=== PATIENT | male | born 1970 ===

== ENCOUNTER 2018-12-13 17:29 | Outpatient (REF) | payer BC, SELFPAY ==
[2018-12-13 22:53] LABS: Anion Gap 9.1 mmol/L (3-11); BUN 15 mg/dL (7-18); CO2 25.9 mmol/L (21.0-32.0); CREATININE 1.11 mg/dL (0.70-1.30); Calcium 8.7 mg/dL (8.5-10.1); Chloride 106 mmol/L (98-107); Glucose 100 mg/dL (70-100); Potassium 4.2 mmol/L (3.5-5.1); Sodium 141 mmol/L (136-145)
== END 2018-12-13 17:49 ==
LOC: NCHCN 17:29
PROVIDERS: PCP Registered Nurse; Visit Provider Registered Nurse
DX: I10 Essential (primary) hypertension (principal)
CPT/HCPCS: 80048

== ENCOUNTER 2020-01-04 17:34 | Outpatient (REF) | payer OTHER, SELFPAY ==
[2020-01-04 22:23] LABS: ALT 41 U/L (16-63); AST 14 U/L (15-37); Albumin 3.9 g/dL (3.4-5.0); Alkaline Phosphatase 52 U/L (46-116); Anion Gap 9.4 mmol/L (3-11); BUN 20 mg/dL (7-18); Bilirubin, Total 0.3 mg/dL (0.2-1.0); CO2 23.6 mmol/L (21.0-32.0); CREATININE 1.21 mg/dL (0.70-1.30); Calcium 8.7 mg/dL (8.5-10.1); Calculated LDL 151 mg/dL (<100); Chloride 104 mmol/L (98-107); Cholesterol 236 mg/dL (<200); Glucose 101 mg/dL (74-106); HDL Cholesterol 53 mg/dL (40-60); Potassium 4.1 mmol/L (3.5-5.1); Sodium 137 mmol/L (136-145); TSH 1.97 uIU/mL (0.36-3.74); Total Protein 7.1 g/dL (6.4-8.2); Triglyceride 163 mg/dL (<150)
[2020-01-04 22:30] LABS: Hemoglobin A1C 5.5 % (<5.7)
[2020-01-05 09:17] LABS: HCT 44.6 % (40.0-50.0); HGB 14.8 g/dL (13.5-17.5); MCH 30.1 pg (27.0-33.0); MCHC 33.2 % (32.0-36.0); MCV 90.7 fL (80-95); MPV 11.4 fL (8.0-11.0); Platelet Count 225 10^3/uL (130-400); RBC 4.92 10^6/uL (4.36-5.78); RDW 12.2 % (11.8-14.1); RDW-SD 40.4 fL; WBC 7.03 10^3/uL (4.4-10.8)
== END 2020-01-04 17:54 ==
LOC: NCHCN 17:34
PROVIDERS: PCP Registered Nurse; Visit Provider Registered Nurse
DX: Z00.00 Encounter for general adult medical examination without abnormal findings (principal); I10 Essential (primary) hypertension; E66.9 Obesity, unspecified; I48.0 Paroxysmal atrial fibrillation
CPT/HCPCS: 80053; 80061; 85027; 83036; 84443

== ENCOUNTER 2020-11-30 09:34 | Outpatient (REF) | payer OTHER, SELFPAY ==
[2020-11-30 21:14] LABS: Magnesium 2.3 mg/dL (1.8-2.4)
[2020-11-30 21:17] LABS: Anion Gap 10.8 mmol/L (3-11); BUN 24 mg/dL (7-18); CO2 23.2 mmol/L (21.0-32.0); CREATININE 1.2 mg/dL (0.70-1.30); Calcium 8.9 mg/dL (8.5-10.1); Chloride 108 mmol/L (98-107); Glucose 116 mg/dL (74-106); Potassium 5.2 mmol/L (3.5-5.1); Sodium 142 mmol/L (136-145)
== END 2020-11-30 09:35 | disposition home or self-care (01) ==
LOC: NCHCN 09:34
PROVIDERS: PCP Registered Nurse; Referring Provider Registered Nurse; Visit Provider Registered Nurse
DX: I48.91 Unspecified atrial fibrillation (principal); Z02.89 Encounter for other administrative examinations
CPT/HCPCS: 80048; 80162; 83735